=== PATIENT | male | born 1970 | race Two or more races ===

== ENCOUNTER 2017-10-23 10:31 | Emergency (ER) | payer MEDICAID, OTHER ==
[~2017-10-23] VITALS: Ht 165.1 cm; Wt 74.8 kg
[~2017-10-23 10:31] MED LIST: IBU800T
[2017-10-23] MEDS ORDERED: traMADol HCL 50 MG TAB PO ONE (11:00)
[2017-10-23] MEDS ORDERED: ONDANSETRON HCL 4 MG/2 ML VIAL IV ONE (12:45)
[2017-10-23 13:22] VITALS: BP 118/62
== END 2017-10-23 13:30 | disposition short-term general hospital (02) ==
LOC: EDBD 10:31 → ER 10:31 → EDUNIT# 10:31 → ER 13:30
DX: S12.401A Unspecified nondisplaced fracture of fifth cervical vertebra, initial encounter for closed fracture (principal); R51 Headache; F17.210 Nicotine dependence, cigarettes, uncomplicated; V43.92XA Unspecified car occupant injured in collision with other type car in traffic accident, initial encounter; Y93.89 Activity, other specified; Y92.488 Other paved roadways as the place of occurrence of the external cause; Y99.8 Other external cause status
CPT/HCPCS: 70450; 72125; 99285; J2405

== ENCOUNTER 2022-10-09 16:23 | Inpatient (IN) | payer MEDICAID, OTHER ==
[~2022-10-09] VITALS: Ht 165.1 cm; Wt 65.7 kg
[2022-10-09] MEDS ORDERED: HYDROmorphone HCL 2 MG/ML VL/or syr IV ONE (16:45)
[2022-10-09] MEDS ORDERED: SODIUM CHLORIDE 0.9% 1,000 ML IVB ONE (16:45)
[2022-10-09] MEDS ORDERED: ONDANSETRON HCL 4 MG/2 ML VIAL IV ONE (16:45)
[2022-10-09 17:04] LABS: Basophils # (auto) 0 10 ^3/uL (0-0.2); Basophils % (auto) 0.3 % (0.0-2.0); Eosinophils # (auto) 0 10 ^3/uL (0-0.8); Eosinophils % (auto) 0.1 % (0.0-7.0); Hematocrit 51.6 % (41.0-53.0); Lymphocytes # (auto) 2.1 10 ^3/uL (0.4-5.4); Lymphocytes % (auto) 15.9 % (10.0-50.0); Mean Corpuscular Hemoglobin 29.1 pg (28.0-32.0); Mean Corpuscular Volume 88.1 fL (80.0-100.0); Monocytes # (auto) 0.4 10 ^3/uL (0-1.3); Neutrophils # (auto) 10.9 10 ^3/uL (1.6-8.6); Neutrophils % (auto) 80.7 % (37.0-80.0); Nucleated Red Blood Cells % 0.1 %; Red Blood Cells 5.85 10^6/uL (4.5-5.90); White Blood Cell 13.5 10^3/uL (4.4-10.8)
[2022-10-09 17:17] LABS: Albumin 3.7 g/dL (3.4-5.0); BUN/Creatinine Ratio 27.5; Calcium 9.4 mg/dL (8.5-10.1); Magnesium 2.1 mg/dL (1.6-2.6); Potassium 4.2 mmol/L (3.5-5.1)
[2022-10-09 17:20] LABS: Bilirubin, Total 0.8 mg/dL (0.2-1.0); Total Protein 7.6 g/dL (6.4-8.2)
[2022-10-09 17:57] LABS: Lactic Acid w/Reflex 2.4 mmol/L (0.4-2.0)
[2022-10-09] MEDS ORDERED: IOHEXOL 300 MG/ML 100ML BOTTLE IJ ONE (19:50)
[2022-10-09] MEDS ORDERED: ONDANSETRON HCL 4 MG/2 ML VIAL IV PRN (23:45)
[2022-10-09] MEDS ORDERED: MORPHINE SULFATE INJ 2 MG/ml SYRG IV PRN (23:45)
[2022-10-09] MEDS ORDERED: metroNIDAZOLE 500MG/100ML 100 ML IV ONE (23:45)
[2022-10-09] MEDS ORDERED: NITROGLYCERIN 0.4 MG SL TAB SL PRN (23:45)
[2022-10-09] MEDS ORDERED: HYDROcodone-ACET 5/325MG TAB PO PRN (23:45)
[2022-10-09] MEDS ORDERED: ACETAMINOPHEN 325 MG TAB PO PRN (23:45)
[2022-10-09] MEDS ORDERED: SODIUM CHLORIDE 0.9% 1,000 ML IV SCH (23:45)
[2022-10-09] MEDS ORDERED: HYDROmorphone HCL 2 MG/ML VL/or syr IV PRN (23:45)
[2022-10-10] MEDS ORDERED: cefTRIAXone 1GM/50ML D5W 50 ML IV ONE (00:15)
[2022-10-10] MEDS: metroNIDAZOLE 500MG/100ML 100 ML IV SCH ×3 (06:16→22:38)
[2022-10-10 07:44] LABS: Basophils # (auto) 0 10 ^3/uL (0-0.2); Basophils % (auto) 0.2 % (0.0-2.0); Eosinophils # (auto) 0 10 ^3/uL (0-0.8); Hematocrit 47.3 % (41.0-53.0); Hemoglobin 15.5 g/dL (13.5-17.5); Lymphocytes # (auto) 2.6 10 ^3/uL (0.4-5.4); Lymphocytes % (auto) 19.3 % (10.0-50.0); Mean Corpuscular Hemoglobin 28.5 pg (28.0-32.0); Mean Corpuscular Hgb Conc. 32.7 g/dL (32.0-36.0); Mean Corpuscular Volume 87.2 fL (80.0-100.0); Monocytes # (auto) 1.1 10 ^3/uL (0-1.3); Monocytes % (auto) 8.1 % (0.0-12.0); Neutrophils # (auto) 9.8 10 ^3/uL (1.6-8.6); Neutrophils % (auto) 72.4 % (37.0-80.0); Red Blood Cells 5.42 10^6/uL (4.5-5.90); Red Cell Distribution Width 14.1 % (11.8-14.3); White Blood Cell 13.6 10^3/uL (4.4-10.8)
[2022-10-10 08:31] LABS: Albumin 3.1 g/dL (3.4-5.0); BUN/Creatinine Ratio 35.3; Bilirubin, Total 1.1 mg/dL (0.2-1.0); Calcium 8.6 mg/dL (8.5-10.1); Total Protein 6.4 g/dL (6.4-8.2)
[2022-10-10] MEDS: FAMOTIDINE (10MG/ML) 2ML VL IV SCH ×2 (10:17→21:29)
[2022-10-10 10:42] LABS: Amphetamine Screen, Urine NEGATIVE (NEGATIVE); Barbiturate Scree,Urine NEGATIVE (NEGATIVE); Benzodiazephine Screen, Urine NEGATIVE (NEGATIVE); Cannabinoid Screen, Urine NEGATIVE (NEGATIVE); Cocaine Screen, Urine NEGATIVE (NEGATIVE); Opiate Scree,Urine NEGATIVE (NEGATIVE); Phencyclidine Screen, Urine NEGATIVE (NEGATIVE)
[2022-10-10 11:02] LABS: Urine Bacteria NONE SEEN /hpf (None Seen); Urine Blood Negative /uL (Negative)
[2022-10-10 11:18] LABS: Urine Specific Gravity > 1.050 (1.001-1.035)
[2022-10-10 11:19] LABS: Urine Mucus MODERATE (None Seen); Urine WBC 15 /hpf (0 - 3)
[2022-10-10] MEDS ORDERED: MORPHINE SULFATE INJ 2 MG/ml SYRG IV PRN (15:00)
[2022-10-10] MEDS: D5W/SOD CHL 0.45%/KCL 20MEQ 1,000 ML IV SCH (15:00)
[2022-10-10] MEDS ORDERED: LORazepam 2MG/ML-1ML VIAL IV PRN (15:00)
[2022-10-10 16:50] VITALS: BP 115/80
[2022-10-10] MEDS: cefTRIAXone 1GM/50ML D5W 50 ML IV SCH (21:28)
[2022-10-10] MEDS: METOCLOPRAMIDE HCL 5MG/ml INJ 2ml VIAL IV SCH (21:29)
[2022-10-10 22:00] VITALS: BP 125/81
[2022-10-11] MEDS: D5W/SOD CHL 0.45%/KCL 20MEQ 1,000 ML IV SCH ×3 (01:00→21:39)
[2022-10-11] MEDS: METOCLOPRAMIDE HCL 5MG/ml INJ 2ml VIAL IV SCH ×3 (05:31→21:38)
[2022-10-11] MEDS: metroNIDAZOLE 500MG/100ML 100 ML IV SCH ×3 (05:32→22:39)
[2022-10-11 05:45] VITALS: BP 115/82
[2022-10-11 08:00] VITALS: BP 105/73
[2022-10-11] MEDS: FAMOTIDINE (10MG/ML) 2ML VL IV SCH ×2 (10:29→21:38)
[2022-10-11] MEDS ORDERED: GASTROGRAFIN 120 ML SOL ONE (10:35)
[2022-10-11 12:00] VITALS: BP 126/82
[2022-10-11 16:00] VITALS: BP 116/81
[2022-10-11] MEDS: cefTRIAXone 1GM/50ML D5W 50 ML IV SCH (21:38)
[2022-10-11 22:00] VITALS: BP 124/80
[2022-10-12 05:00] VITALS: BP 103/72
[2022-10-12] MEDS: metroNIDAZOLE 500MG/100ML 100 ML IV SCH ×3 (05:34→22:56)
[2022-10-12] MEDS: METOCLOPRAMIDE HCL 5MG/ml INJ 2ml VIAL IV SCH ×3 (05:34→22:10)
[2022-10-12 06:00] LABS: Basophils # (auto) 0 10 ^3/uL (0-0.2); Basophils % (auto) 0.4 % (0.0-2.0); Eosinophils # (auto) 0.2 10 ^3/uL (0-0.8); Eosinophils % (auto) 2.4 % (0.0-7.0); Hematocrit 44.4 % (41.0-53.0); Hemoglobin 14.8 g/dL (13.5-17.5); Lymphocytes # (auto) 1.8 10 ^3/uL (0.4-5.4); Mean Corpuscular Hgb Conc. 33.3 g/dL (32.0-36.0); Mean Corpuscular Volume 87.1 fL (80.0-100.0); Monocytes # (auto) 0.9 10 ^3/uL (0-1.3); Monocytes % (auto) 9.9 % (0.0-12.0); Neutrophils # (auto) 5.8 10 ^3/uL (1.6-8.6); Neutrophils % (auto) 66.3 % (37.0-80.0); Red Cell Distribution Width 13.9 % (11.8-14.3); White Blood Cell 8.7 10^3/uL (4.4-10.8)
[2022-10-12 06:22] LABS: BUN/Creatinine Ratio 23.5; Calcium 8.4 mg/dL (8.5-10.1); Potassium 3.7 mmol/L (3.5-5.1)
[2022-10-12] MEDS: D5W/SOD CHL 0.45%/KCL 20MEQ 1,000 ML IV SCH ×2 (07:00→17:00)
[2022-10-12 08:00] VITALS: BP 94/64
[2022-10-12] MEDS: FAMOTIDINE (10MG/ML) 2ML VL IV SCH ×2 (11:22→22:10)
[2022-10-12 12:00] VITALS: BP 119/77
[2022-10-12 16:00] VITALS: BP 117/84
[2022-10-12 22:00] VITALS: BP 115/75
[2022-10-12] MEDS: cefTRIAXone 1GM/50ML D5W 50 ML IV SCH (22:10)
[2022-10-13] MEDS: D5W/SOD CHL 0.45%/KCL 20MEQ 1,000 ML IV SCH ×2 (03:14→13:30)
[2022-10-13 05:00] VITALS: BP 107/67
[2022-10-13] MEDS: METOCLOPRAMIDE HCL 5MG/ml INJ 2ml VIAL IV SCH ×2 (05:58→13:35)
[2022-10-13] MEDS: metroNIDAZOLE 500MG/100ML 100 ML IV SCH ×2 (05:59→13:35)
[2022-10-13 09:00] VITALS: BP 101/67
[2022-10-13] MEDS: FAMOTIDINE (10MG/ML) 2ML VL IV SCH (09:25)
[2022-10-13 13:00] VITALS: BP 104/72
[2022-10-13 17:00] VITALS: BP 103/72
== END 2022-10-13 20:00 | disposition home or self-care (01) | DRG 247 ==
LOC: ER 16:25 → OVERFLOW 23:43 → EAST 10-10 16:50
PROVIDERS: ADMIT Nurse Practitioner Family; ATTEND Nurse Practitioner Acute Care
DX: K56.600 Partial intestinal obstruction, unspecified as to cause (principal); E87.20 Acidosis, unspecified; D72.829 Elevated white blood cell count, unspecified; R73.9 Hyperglycemia, unspecified; F17.210 Nicotine dependence, cigarettes, uncomplicated; F32.A Depression, unspecified; Z20.822 Contact with and (suspected) exposure to COVID-19
CPT/HCPCS: 36415; 74177; 80048; 80053; 80307; 81001; 83036; 83605; 83690; 83735; 84484; 85025; 87426; 93005; 96361; 96365; 96367; 96375; G0378; J0696; J2405; J3490